=== PATIENT | male | born 1960 | race African-American/Black ===

== ENCOUNTER 2018-02-04 02:50 | Emergency (ER) | END 2018-02-04 05:30 | disposition home or self-care (01) ==

== ENCOUNTER 2018-03-23 02:12 | Emergency (ER) | END 2018-03-23 04:48 | disposition home or self-care (01) ==

== ENCOUNTER 2018-05-28 20:17 | Emergency (ER) | payer OTHER ==
[~2018-05-28] VITALS: Ht 182.9 cm; Wt 86.4 kg
[~2018-05-28 20:17] MED LIST: HYDR-3980 PO
[2018-05-28 20:25] VITALS: BP 148/90; PULSE 80; RESP 18; Ht 182.9 cm; Wt 86.4 kg
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
[2018-05-28] MEDS ORDERED: MELOXICAM 15 MG TAB PO ONE (22:00)
== END 2018-05-28 22:11 ==
LOC: E/R 20:17
DX: Z02.89 Encounter for other administrative examinations (principal); I10 Essential (primary) hypertension
CPT/HCPCS: 99283